=== PATIENT | male | born 1935 | race Caucasian/White ===

== ENCOUNTER 2017-02-06 10:38 | Outpatient (CLI) | payer MEDICARE ==
--- NOTE | 2017-02-06 13:42 | CT ---
CT CHEST WITHOUT CONTRAST HIGH RESOLUTION: Date: 02/06/17 HISTORY: Aspiration, cough. COMPARISON: None. FINDINGS: There is an apical basilar gradient of increased peripheral interstitial markings in the lung bases. There is mild associated traction bronchiectasis. No honeycombing. Mild thickening of the peripheral pleural of the bilateral major fissure. No suspicious pulmonary nodule is appreciated. There is intrahepatic biliary gas. No adenopathy. Moderate coronary artery calcifications. Cholecystectomy clips are present. No displaced rib fracture. IMPRESSION: 1. Mild increased subpleural reticulation of the apicobasilar gradient without honeycombing suggests a nonspecific interstitial pneumonitis. 2. No suspicious pulmonary nodule. 3. Moderate coronary artery calcifications. 4. Large volume intrahepatic biliary gas, likely from prior sphincterotomy. POS: DERREK
--- NOTE | 2017-02-08 09:32 | PFT ---
PATIENT HISTORY: HEIGHT: 66 IN WEIGHT: 150 LBS SMOKER: NEVER HOW LONG: PACKS PER DAY PRODUCTIVE COUGH: NO LUNG DISEASE: PHYSICIAN INTERPRETATION FINAL REPORT: FEV1 is normal at 2.23 liters, FVC is normal. Mid flows are normal. Maximum voluntary ventilation is moderately decreased total lung capacity is mildly reduced. Patient had coughing during the forced vital capacity maneuver. Air trapping was noted. Diffusion was reduced is corrected for lung volumes. There is variable effort on inspiration.nothing suggestive of extrathoracic airway obstruction. IMPRESSION: Nothing suggestive of extrathoracic airway obstruction. Hose Inspector: SARAY Concert Pianist: SARAY TELLEZ
== END 2017-02-06 10:39 | disposition home or self-care (01) ==
LOC: CT 10:38
PROVIDERS: ATTEND Internal Medicine Critical Care Medicine
DX: J69.0 Pneumonitis due to inhalation of food and vomit (principal); R05 Cough; I25.84 Coronary atherosclerosis due to calcified coronary lesion; K83.8 Other specified diseases of biliary tract
CPT/HCPCS: 71250; 94060; 94727; 94729

== ENCOUNTER 2017-06-30 09:56 | Outpatient (CLI) | payer MEDICARE ==
--- NOTE | 2017-06-30 12:29 | CT ---
CT CHEST WITHOUT CONTRAST: Date: 06/30/17 INDICATION: Concern for aspiration with chronic cough for 1 year. FINDINGS: There is a small left pleural effusion which is slightly larger than on a high resolution CT dated . The areas of peripheral interstitial thickening is largely stable, likely related to fibrosis . No confluent air space opacity is noted. No suspicious pulmonary nodule is identified. There are sc attered vascular calcification. The gallbladder is surgically absent. There is a 3.0 mm nonobstructin g calculus involving the superior pole of the right kidney. There is scattered degenerative and osteo arthritic change. There is diffuse osteopenia. IMPRESSION: 1. No confluent air space opacity to suggest the presence of pneumonia or definite aspiration pneumo nitis. 2. There is a small left pleural effusion with left basilar atelectasis, which is slightly more pron ounced than on a high resolution CT dated 02/06/17. 3. Interstitial fibrotic disease is similar appearing. 4. Cholecystectomy and pneumobilia is similar. POS: DERREK
== END 2017-06-30 09:57 | disposition home or self-care (01) ==
LOC: CT 09:56
PROVIDERS: ATTEND Internal Medicine Critical Care Medicine
DX: J69.0 Pneumonitis due to inhalation of food and vomit (principal); J90 Pleural effusion, not elsewhere classified; J98.11 Atelectasis; J84.10 Pulmonary fibrosis, unspecified; K83.8 Other specified diseases of biliary tract
CPT/HCPCS: 71250

== ENCOUNTER 2017-10-16 09:37 | Outpatient (CLI) | payer MEDICARE ==
--- NOTE | 2017-10-16 10:39 | RAD ---
PA AND LATERAL CHEST X-RAY: 10/16/2017 HISTORY: Dyspnea. COMPARISON: Study from 04/08/[address] exam thorax on 02/06/2017. FINDINGS: The cardiac silhouette and pulmonary vasculature are within normal limits. There are increased inter stitial opacities at each lung base, which were also seen on the high resolution CT exam, likely rela sp to chronic interstitial lung changes. No new focal area of consolidation or pleural fluid is see n. Degenerative changes are noted in the spine with calcification of the anterior longitudinal ligam ent. IMPRESSION: 1. No acute cardiopulmonary process. 2. Chronic interstitial lung changes, predominantly at each lung base and at the peripheral aspects of the mid lung zones. POS: DERREK
== END 2017-10-16 09:38 | disposition home or self-care (01) ==
LOC: RAD 09:37
PROVIDERS: ATTEND Internal Medicine Critical Care Medicine
DX: R06.00 Dyspnea, unspecified (principal)
CPT/HCPCS: 71046

== ENCOUNTER 2017-10-23 09:45 | Outpatient (CLI) | payer MEDICARE | END 2017-10-23 09:46 | disposition home or self-care (01) | PROVIDERS: ATTEND Internal Medicine Critical Care Medicine | DX: I69.891 Dysphagia following other cerebrovascular disease (principal); R13.12 Dysphagia, oropharyngeal phase; J69.0 Pneumonitis due to inhalation of food and vomit; K21.9 Gastro-esophageal reflux disease without esophagitis; J38.00 Paralysis of vocal cords and larynx, unspecified | CPT/HCPCS: 74230; G8996-GN-CJ; G8997-GN-CI; G8998-GN-CJ ==

== ENCOUNTER 2017-12-29 09:12 | Outpatient (CLI) | payer MEDICARE ==
--- NOTE | 2017-12-29 11:06 | CT ---
CHEST CT WITHOUT CONTRAST: Comparison: 02-06-17 History: Follow up chronic cough and pulmonary fibrosis. Technique: Multiple contiguous axial images were obtained in a CT of the chest without contrast per h igh resolution chest CT protocol. Thin slices were taken at thick intervals. Prone and supine imaging were performed. FINDINGS: There are increased interstitial lung markings peripherally. These are seen in both the upper lobes a nd lower lobes but are more prominent in the bilateral lower lobes. These findings are stable compare d to the prior examination. No significant honeycombing or bronchiectasis are present. No pleural eff usion or pneumothorax are seen. There is a 1.4 cm nodular opacity in the posterior aspect of the left lung which may represent ground atelectasis as it was not seen on the prior examination. Pulmonary n odule is also a possibility. The heart is normal in size. Calcifications are seen in the coronary arteries. No hilar or mediastina l lymphadenopathy are appreciated on this limited noncontrast examination. There is stable air within the biliary tree. Cholecystectomy clips are seen. The other visualized sub diaphragmatic structures are unremarkable. IMPRESSION: Stable peripheral interstitial lung disease does not have a UIT pattern and is most likely consistent with a nonspecific interstitial pneumonitis. POS: [facility]
== END 2017-12-29 09:13 | disposition home or self-care (01) ==
LOC: CT 09:12
PROVIDERS: ATTEND Internal Medicine Critical Care Medicine
DX: J84.10 Pulmonary fibrosis, unspecified (principal); J84.9 Interstitial pulmonary disease, unspecified
CPT/HCPCS: 71250

== ENCOUNTER 2018-07-15 08:22 | Outpatient (CLI) | payer MEDICARE ==
--- NOTE | 2018-07-15 11:19 | RAD ---
CHEST PA AND LATERAL VIEWS: HISTORY: Dyspnea. COMPARISON: 04/20/2018 FINDINGS: The heart size is normal. The aorta is tortuous. Chronic changes are again seen. No focal areas of consolidation, pneumothoraces, or pleural effusions are identified. IMPRESSION: No radiographic evidence of acute cardiopulmonary process. POS: OFF
== END 2018-07-15 08:23 | disposition home or self-care (01) ==
LOC: RAD 08:22
PROVIDERS: ATTEND Internal Medicine Critical Care Medicine
DX: R06.00 Dyspnea, unspecified (principal)
CPT/HCPCS: 71046

== ENCOUNTER 2018-08-22 21:51 | Inpatient (IN) | payer MEDICARE ==
[~2018-08-22 21:51] MED LIST: ISOVUE-370 76%-LOCM 1 ML ONE
[2018-08-22] MEDS ORDERED: diphenhydrAMINE 50 MG/ML VIAL ONE (22:11)
[2018-08-22] MEDS ORDERED: methylPREDNISolone Sod Succ/PF 125 MG/2 ML VIAL ONE (22:11)
[2018-08-22] MEDS ORDERED: Famotidine/PF 20 mg/2ml Vial ONE (22:11)
[2018-08-22 22:20] LABS: #Eosinphils 0.1 thou/uL (0.0-0.7); #Lymphocytes 0.8 thou/uL (1.20-3.40); #Monocytes 0.4 thou/uL (0.11-0.59); #Neutrophils 3.9 thou/uL (1.40-6.50); %Basophils 0.4 % (0.0-1.0); %Eosinophils 1.5 % (0.0-10.0); %Lymphocytes 16.2 % (21.0-51.0); %Neutrophils 74.9 % (42.0-75.0); Hemoglobin 12.4 g/dL (14.0-18.0); Mean Corpuscular HGB CONC 33.9 g/dL (32.0-36.0); Mean Corpuscular Hemoglobin 32.6 pg (27.0-31.0); Mean Corpuscular Volume 96.4 fL (78.0-98.0); Mean Platelet Volume 5.5 fL (7.4-10.4); Platelet Count 131 thou/uL (130-400); RBC Distribution Width 13.4 % (11.5-14.5); Red Blood Cell (RBC) Count 3.79 mill/uL (4.70-6.10); White Blood Cell (WBC) Count 5.2 thou/uL (4.8-10.8)
[2018-08-22 22:26] LABS: PTT 29.2 SEC (22.9-36.1); Prothrombin Time 13.4 SEC (12.0-14.7)
[2018-08-22 22:34] LABS: ALT (SGPT) 27 U/L (8-55); AST (SGOT) 38 U/L (5-34); Albumin 4.3 g/dL (3.4-4.8); Alkaline Phosphatase 149 U/L (40-150); Anion Gap 10 mmol/L (10-20); BUN (Urea Nitrogen) 13 mg/dL (8.4-25.7); Bilirubin, Total 0.7 mg/dL (0.2-1.2); CK (CPK) 136 U/L (30-200); Calc. Creatinine Clearance 0 mL/min (70-130); Calcium 9.3 mg/dL (7.8-10.44); Carbon Dioxide 28 mmol/L (23-31); Chloride 96 mmol/L (98-107); Estimated GFR-MDRD 66; Globulin 2.9 g/dL (2.4-3.5); Glucose 97 mg/dL (83-110); Potassium 4.3 mmol/L (3.5-5.1); Protein, Total 7.2 g/dL (5.8-8.1); Sodium 130 mmol/L (136-145)
[2018-08-22 22:39] LABS: Acetaminophen Less than 6.0 mcg/mL (10.0-30.0); Alcohol Less than 10 mg/dL (Less than 10); Salicylate Less than 8.0 mg/dL (15.0-30.0)
[2018-08-22] MEDS ORDERED: Labetalol HCl 100 MG/20 ML VIAL ONE (22:39)
[2018-08-22] MEDS ORDERED: Metoprolol Tartrate 5 MG/5 ML VIAL ONE ×2 (22:40→22:57)
[2018-08-22] MEDS ORDERED: Morphine 2 MG/ML SYRINGE ONE ×2 (22:44→23:12)
--- NOTE | 2018-08-22 23:06 | CT ---
EXAM: CT brain without contrast HISTORY: Left facial drooping; altered mental status and slurred speech COMPARISON: None TECHNIQUE: Multiple contiguous axial images were obtained and a CT of the brain without contrast. FINDINGS: There are scattered hypodensities in the subcortical and periventricular white matter consi stent with small vessel ischemic disease. There is no evidence of hydrocephalus, intracranial hemorrhage, or extra-axial fluid collection. The calvarium and overlying soft tissues are unremarkable. The visualized paranasal sinuses and masto id air cells are well aerated. IMPRESSION: No evidence of acute intracranial abnormality. Dr. Yi notified of findings at 11:04 PM on 08/22/2018.
--- NOTE | 2018-08-22 23:19 | CT ---
Exam: CTA neck with contrast CTA head with contrast HISTORY: Left facial drooping; altered mental status and slurred speech COMPARISON: None TECHNIQUE: 1. Multiple contiguous axial images were obtained and a CTA of the neck with contrast. 3-D sagittal a nd coronal MIP reformats were performed. 2. Multiple contiguous axial images were obtained and a CTA of the head with contrast. 3-D sagittal a nd coronal MIP reformats were performed. FINDINGS: CTA NECK: Aortic arch: Normal origin of the carotid arteries from the arch. No significant atherosclerotic dise ase of the subclavian arteries. Right common carotid artery: No significant atherosclerotic disease or narrowing Left common carotid artery: No significant atherosclerotic disease or narrowing Right internal carotid artery: No significant atherosclerotic disease or narrowing per NASCET criteri a Right external carotid artery: No significant atherosclerotic disease or narrowing Left internal carotid artery: No significant atherosclerotic disease or narrowing per NASCET criteri a Left external carotid artery: No significant atherosclerotic disease or narrowing Right cervical vertebral artery: No significant atherosclerotic disease or narrowing Left cervical vertebral artery: No significant atherosclerotic disease or narrowing No cervical adenopathy. The lung apices are unremarkable. The osseous structures are unremarkable. CTA HEAD: Right intracranial internal carotid artery: Patent without narrowing or occlusion Right anterior cerebral artery: Patent without narrowing or occlusion Right middle cerebral artery: Patent without narrowing or occlusion Left intracranial internal carotid artery: Patent without narrowing or occlusion Left anterior cerebral artery: Patent without narrowing or occlusion Left middle cerebral artery: Patent without narrowing or occlusion No aneurysmal dilatation is seen in the anterior circulation. Right vertebral artery: Patent without narrowing or occlusion Left vertebral artery: Patent without narrowing or occlusion Basilar artery: Patent without narrowing or occlusion The posterior cerebral arteries and cerebellar arteries are patent without narrowing or occlusion. No aneurysmal dilatation is seen in the posterior circulation. IMPRESSION: 1. No significant CTA abnormality of the neck 2. No significant CTA abnormality of the head
[2018-08-22 23:26] LABS: Bilirubin Negative (Negative); Blood, Urine Negative (Negative); Clarity CLEAR (Clear); Glucose, Urine (Dipstick) Negative (Negative); Leukocyte Negative (Negative); Nitrite Negative (Negative); Protein, Urine (Dipstick) Negative (Neg-Trace); Urobilinogen 0.2 mg/dL (0.2-1.0)
[2018-08-22] MEDS ORDERED: niCARdipine 20MG In NaCl 20 MG/200 ML BAG ONE (23:29)
[2018-08-22 23:38] LABS: Amphetamine Not Detected (NotDetected); Barbiturates Screen Not Detected (NotDetected); Benzodiazepine Screen Detected (NotDetected); Cocaine Metabolite Screen Not Detected (NotDetected); Medtox Control Line Valid? VALID (VALID); Medtox Reader # READER 4; Methadone Not Detected (NotDetected); Methamphetamine Not Detected (NotDetected); Opiate Screen Not Detected (NotDetected); Oxycodone Screen Not Detected (NotDetected); Phencyclidine (PCP) Not Detected (NotDetected); THC/Cannabinoid Screen Not Detected (NotDetected); Tricyclic Screen Detected (NotDetected)
--- NOTE | 2018-08-22 23:38 | RAD ---
EXAM: 2 views of the left hip HISTORY: Left hip pain COMPARISON: None FINDINGS: 2 views of the left hip shows no evidence of acute fracture or dislocation. The patient has a left hip prosthesis without perihardware lucency or fracture. . No soft tissue swelling is present. IMPRESSION: No evidence of acute osseous abnormality.
--- NOTE | 2018-08-22 23:41 | RAD ---
Exam: Single view of the pelvis HISTORY: Pelvic and hip pain COMPARISON: None FINDINGS: A single view the pelvis shows no evidence of acute fracture or dislocation. The patient crenshaw s a left hip prosthesis without perihardware lucency or fracture. Mild degenerative changes seen in the right hip. Hardware projecting over the penis likely represents a penile prosthesis. IMPRESSION: No evidence of acute osseous abnormality.
--- NOTE | 2018-08-23 01:11 | PDOC.FPRHP ---
- History of Present Illness Chief Complaint: found down, weakness History of Present Illness: 82 yo M with PMH of HTN, HLD presents after being found down at home. reports he had been outside all morning, while she went to the grocery store. He helped her bring the groceries in, then unknown to her he went and sat in his chair. She went looking for him and found him "sleeping" in his chair around 6 -6:15 PM, and was unable to arouse him fully by shaking him. He was able to answer yes or no questions but when she opened his eyes, he stated he couldn't see. EMS took him to [employer] where his NIH was 32, he was not breathing well, and he was life-flighted here to [facility]. Family reports he had multiple apneic episodes in [place] that responded to stimulation. He improved during the flight, started waking up. NIH on arrival here was 7 for some global confusion and slurred speech. Blood pressure was found to be elevated 220s/110s. He was given 3 doses of metoprolol. His BP did not improve, so he was started on a cardene drip. Patient reports he still feels somewhat confused, feels weak all over, feels SOB and has some trouble talking. Family reports his speech is at baseline. Reports headache, muscle cramps in left leg, SOB, and general weakness. Denies fever, chest pain, palpitations, wheezing, abdominal pain. - Allergies/Adverse Reactions Allergies Allergy/AdvReac Type Severity Reaction Status Date / Time iodine Allergy Severe Verified 06/11/16 10:58 Penicillins Allergy Intermediate Rash Verified 06/11/16 10:58 - Home Medications Medication Instructions Recorded Confirmed Type Sennosides/Docusate Sodium 1 tab PO ASDIR 04/10/13 06/12/16 History [Senokot S] Levothyroxine Sodium 112 mcg PO DAILY 06/11/16 06/12/16 History Lorazepam [Ativan] 1 mg PO TID PRN 06/11/16 06/12/16 History Losartan Potassium 50 mg PO HS 06/11/16 06/12/16 History Nortriptyline HCl 50 mg PO HS 06/11/16 06/12/16 History Pantoprazole [Protonix] 40 mg PO DAILY 06/11/16 06/12/16 History QUEtiapine Fumarate [SEROquel] 25 mg PO HS 06/11/16 06/12/16 History Acetaminophen With Codeine 1 tablet PO Q6HR PRN 06/12/16 06/12/16 History [Tylenol with Codeine #3] - History PMHx: HTN (no longer on medication, taken off by PCP), HLD, chronic back pain, anxiety, depression PSHx: L elbow and hsoulder repair, L hip repair, penile implant, appendectomy, cholecystectomy, chronic pancreatitis FHx: sister: colon cancer Social: No t/a/d - Review of Systems General: reports: other (headache). denies: fever/chills Eyes: reports: vision changes (blurring). denies: eye pain ENT: denies: nasal congestion, rhinorrhea Respiratory: reports: shortness of breath. denies: cough, congestion Cardiovascular: denies: chest pain, palpitation Gastrointestinal: reports: nausea, diarrhea, constipation. denies: vomiting, abdominal pain, GI bleeding Genitourinary: denies: dysuria, other (hematuria) Skin: reports: rashes (hematomas over both arms from blood draws) Musculoskeletal: reports: pain, tenderness (cramping left leg) Neurological: reports: weakness (generalized). denies: numbness Psychological: reports: anxiety, depression - Vital signs BP: 221/87 HR: 86 RR: 16 Tmax: 98.6 Pox: 100% on RA Wt: 78.4 kg - Physical Exam Constitutional: NAD, awake, alert and oriented HEENT: normocephalic and atraumatic, PERRLA, EOMI, conjunctiva clear, no scleral icterus, oropharynx clear, other (mild decreased hearing, dry MM) -HEENT: MM dry Neck: supple, no LAD Heart: RRR, normal S1/S2, no murmurs/rubs/gallops, pulses present, other (1+ BLE pitting edema) Lungs: no wheezing, other (inspiratory and expiratory crackles bilat lower bases ) Abdomen: soft, non-tender, bowel sounds present, other (diastasis recti) Musculoskeletal: normal structure, normal tone, ROM grossly normal Neurological: CN II-XII intact, normal sensation, DTRs 2+, other (3/5 strength upper and 4/5 lower extremities bilat) Skin: good turgor, capillary refill <2 seconds, other (extensive hematomas over both forearms) Heme/Lymphatic: other (extensive hematomas over bilat forearms from blood draws) Psychiatric: normal mood and affect, intact recent and remote memory FMR H&P: Results - Labs Result Diagrams: 08/22/18 22:06 08/22/18 22:06 Lab results: WBC 5.2 thou/uL (4.8-10.8) 08/22/18 22:06 Hgb 12.4 g/dL (14.0-18.0) L 08/22/18 22:06 Hct 36.5 % (42.0-52.0) L 08/22/18 22:06 MCV 96.4 fL (78.0-98.0) 08/22/18 22:06 Plt Count 131 thou/uL (130-400) 08/22/18 22:06 Neutrophils % 74.9 % (42.0-75.0) 08/22/18 22:06 Sodium 130 mmol/L (136-145) L 08/22/18 22:06 Potassium 4.3 mmol/L (3.5-5.1) 08/22/18 22:06 Chloride 96 mmol/L (98-107) L 08/22/18 22:06 Carbon Dioxide 28 mmol/L (23-31) 08/22/18 22:06 BUN 13 mg/dL (8.4-25.7) 08/22/18 22:06 Creatinine 1.07 mg/dL (0.7-1.3) 08/22/18 22:06 Glucose 97 mg/dL (83-110) 08/22/18 22:06 Lactic Acid 0.9 mmol/L (0.5-2.2) 08/22/18 22:31 Calcium 9.3 mg/dL (7.8-10.44) 08/22/18 22:06 Total Bilirubin 0.7 mg/dL (0.2-1.2) 08/22/18 22:06 AST 38 U/L (5-34) H 08/22/18 22:06 ALT 27 U/L (8-55) 08/22/18 22:06 Alkaline Phosphatase 149 U/L (40-150) 08/22/18 22:06 Creatine Kinase 136 U/L (30-200) 08/22/18 22:06 Serum Total Protein 7.2 g/dL (5.8-8.1) 08/22/18 22:06 Albumin 4.3 g/dL (3.4-4.8) 08/22/18 22:06 Urine Ketones Negative mg/dL (Negative) 08/22/18 22:15 Urine Blood Negative (Negative) 08/22/18 22:15 Urine Nitrite Negative (Negative) 08/22/18 22:15 Ur Leukocyte Esterase Negative (Negative) 08/22/18 22:15 - EKG Interpretation EKG: NSR FMR H&P: A/P - Problem List (1) Hypertensive emergency Current Visit: Yes Status: Acute Code(s): I16.1 - HYPERTENSIVE EMERGENCY (2) HLD (hyperlipidemia) Current Visit: Yes Status: Chronic Code(s): E78.5 - HYPERLIPIDEMIA, UNSPECIFIED (3) Anxiety Current Visit: Yes Status: Chronic Code(s): F41.9 - ANXIETY DISORDER, UNSPECIFIED (4) Depression Current Visit: Yes Status: Chronic Code(s): F32.9 - MAJOR DEPRESSIVE DISORDER, SINGLE EPISODE, UNSPECIFIED (5) Chronic pancreatitis Current Visit: Yes Status: Chronic Code(s): K86.1 - OTHER CHRONIC PANCREATITIS - Plan Hypertensive Emergency -220s/110s on arrival, altered mental status -CT head neg, CT Angio neg -EKG NSR -Cardene drip 2.5 mg, Goal BP 185/110 - patient's symptoms improved, speech family states is at baseline -currently AOx3, generalized weakness (BUE 3/5, BLE 4/5). No focal deficits. -Admit to ICU Hx of iodine allergy -pt reports throat swelling prior with iodine -Pt received benadryl and solumedrol s/p iodine with CT angiogram -continue to monitor closely for s/s swelling Rhales -Bilat lower lobes crackles, rreports SOB -CXR pending -1+ pitting edema -family reports no history of heart problems -BNP pending -Concern for flash pulmonary edema vs CHF HTN -as above Anxiety, depression -On seroquel, nortriptyline, lorazepam, unknown doses Hypothyroidism -On levothyroxine, unknown dose -TSH pending Diet: HH DVT ppx: lovenox GI ppx: pantoprazole PCP: Dr. Adkins in [place] Code status: Full FMR H&P: Upper Level - Pertinent history 82 yr old male with hx of depression and HTN that is not been treated for the last year due to "normalization of his BP", presents to outside ER for AMS and unresponsiveness. Patient apparently had been helping his get groceries around 1800. He then sat on couch and within minutes he was noted to be unresponsive. He was taken to ER by EMS and eventually lifeflighted to [facility]. En route, he significantly improved per family. He was noted to have severe elevated BP in ouside ER to 200 systolic and persisted upon arrival here. Denies chest pain but reports SOB and leg pain. Family reports him to have significant improvement since initial symptoms. No slurred speech/ - Pertinent findings Gen: no acute distress, lying in bed comfortably. slow speech but reported at baseline heart: RRR, NO m/r/g Lungs: good air movement however crackles in BLL Abd: Soft nontender to palpation Ext: No edema in BLE EKG: NSR, no ST changes, no ventricular hypertrophy - Plan Date/Time: 08/23/18 0111 I, [Dia Garcia], have evaluated this patient and agree with findings/plan as outlined by sports internship resident. Pertinent changes/additions are listed here. hypertensive emergency -likely acute in nature with altered mentation -will place in ICU n cardene drip and monitor BP closely. -titrate as able for BP < 185/110 -CT and CTA head/neck wnl, consider brain MRI. -TSH normal -renal funciton ok for age Depression -suggest removal of either seroquel or nortriptyline as these dianelys have interactions related to DEHAIRER depression Addendum - Attending - Attending Attestation Date/Time: 08/23/18 0203 I personally evaluated the patient and discussed the management with Dr. Celso Huber /Radha. I agree with the History, Examination, Assessment and Plan documented above with any addition or exceptions noted below. Patient with history of longstanding HTN not requiring medication recently and depression here with altered mentation. Patient was seen normal at home and a few minutes later noted to be overall unresponsive. Upon arrival to OSH, apparently his NIH scale was >30. He was transferred here for further care. Improved en route. On arrival, found to be extremely hypertensive and started on Cardene drip. Per patient, he reports feeling "off" over the last few days but nothing particular bothering him. Exam shows an elderly male AXOx3, conversive, surrounded by family. He has diffuse weakness but overall no focal findings. CT and CTA negative for ICH or thrombus. Labs show mild bump in troponins but still in negative range. Labs otherwise fairly normal. Patient will be admitted to CCU for HTN Emergency. Continue to monitor BP and will titrate PO meds in the AM if able to wean off Cardene. Consider MRI due to his symptoms and labile HTN since reports his BP is overall normal daily. This does not appear to be severe chronic elevation in BP. Also consider heat stroke , though his labs do not necessarily agree with this and patient reports he was not outside for long. Patient does report being on Namenda over the last 1 month and that is only new medication. However, he is on Seroquel and Nortriptyline which can cause issues with mentation abd blood pressure with environmental heat exposure Further mgmt per clinical course.
[2018-08-23 01:31] LABS: Troponin I 0.022 ng/mL (< 0.028)
[2018-08-23] MEDS ORDERED: Bisacodyl 5 MG TAB PO PRN (01:32)
[2018-08-23] MEDS ORDERED: Senokot S 8.6-50 MG TAB PO PRN (01:32)
[2018-08-23] MEDS ORDERED: Acetaminophen 650 MG Suppository PR PRN (01:32)
[2018-08-23] MEDS ORDERED: Enoxaparin Sodium 40 MG/0.4 ML SYRINGE SC SCH (01:45)
[2018-08-23] MEDS ORDERED: niCARdipine HCl 25 MG in Sodium Chloride 0.9% 250 ML 240 ML IVPB SCH (01:45)
[2018-08-23] MEDS ORDERED: Morphine 2 MG/ML SYRINGE SLOW IVP SCH (02:00)
[2018-08-23 04:57] LABS: Anion Gap 11 mmol/L (10-20); BUN (Urea Nitrogen) 12 mg/dL (8.4-25.7); Calc. Creatinine Clearance 64 mL/min (70-130); Calcium 9.8 mg/dL (7.8-10.44); Carbon Dioxide 24 mmol/L (23-31); Chloride 99 mmol/L (98-107); Estimated GFR-MDRD 84; Glucose 167 mg/dL (83-110); Potassium 4.3 mmol/L (3.5-5.1); Sodium 130 mmol/L (136-145)
[2018-08-23 05:07] LABS: Troponin I Less than 0.010 ng/mL (< 0.028)
[2018-08-23] MEDS: Acetaminophen 325 MG TAB PO PRN (05:40)
[2018-08-23 05:42] LABS: Band 4 % (5-11); Elliptocytes SLIGHT = 2-5 cells (100X) (0-1/hpf); Hemoglobin 13.1 g/dL (14.0-18.0); Lymphocytes 4 % (21-51); MDiff Complete? YES; Mean Corpuscular HGB CONC 33.7 g/dL (32.0-36.0); Mean Corpuscular Hemoglobin 32.6 pg (27.0-31.0); Mean Corpuscular Volume 96.8 fL (78.0-98.0); Mean Platelet Volume 6.5 fL (7.4-10.4); Monocytes 2 % (0-10); Neutrophil 90 % (42-75); Platelet Count 135 thou/uL (130-400); Platelet Morphology Comment Appears Decreased; RBC Distribution Width 13.4 % (11.5-14.5); Red Blood Cell (RBC) Count 4.02 mill/uL (4.70-6.10); White Blood Cell (WBC) Count 5.8 thou/uL (4.8-10.8)
--- NOTE | 2018-08-23 08:51 | RAD ---
CHEST 1 VIEW: HISTORY: Bilateral lower lobe crackles. COMPARISON: 09/22/2012. FINDINGS: Normal cardiac silhouette. The pulmonary vessels and hilum are normal. Costophrenic angles are cintia r. Diminished lung volumes. Bibasilar atelectasis is suspected. No pneumothorax or osseous abnorma lities. IMPRESSION: Bibasilar atelectasis. Diminished lung volumes. POS: OFF
[2018-08-23] MEDS ORDERED: Losartan 25 MG TAB PO SCH (09:00)
[2018-08-23] MEDS: Enoxaparin Sodium 40 MG/0.4 ML SYRINGE SC SCH (10:03)
[2018-08-23] MEDS: Levothyroxine Sodium 112 MCG TAB PO SCH (10:25)
[2018-08-23] MEDS: Pantoprazole 40 MG VIAL IVP SCH (10:25)
[2018-08-23] MEDS: Ketorolac Tromethamine 30 MG/ML VIAL IVP SCH ×3 (10:25→23:42)
[2018-08-23] MEDS: Sodium Chloride 0.9% (PF) 10 ML VIAL FS PRN (10:25)
[2018-08-23] MEDS: Sodium Chloride 0.9% 1,000 ML IV SCH ×2 (12:35→23:41)
[2018-08-23] MEDS ORDERED: Ondansetron PF 4 MG/2 ML Vial IVP PRN (12:45)
[2018-08-23] MEDS ORDERED: CCU Electrolyte Replacement 1 EACH IVPB ONE (12:45)
[2018-08-23] MEDS ORDERED: Midazolam HCl 2 mg/2 ml Vial ONE (12:45)
[2018-08-23] MEDS ORDERED: Ventilator Sedation Protocol 1 EACH FS SCH ×2 (12:45→13:00)
[2018-08-23] MEDS ORDERED: Propofol 1,000 MG/100 ML VIAL IV ONE (12:50)
[2018-08-23] MEDS ORDERED: CCU ELECTROLYTE REPLACEMENT PROTOCOL FS PRN (12:52)
[2018-08-23] MEDS ORDERED: Potassium Chloride 20 MEQ TAB PO PRN (12:52)
[2018-08-23] MEDS ORDERED: Potassium Phosphate 12 MMOL in Sodium Chloride 0.9% 250 ML 250 ML IV PRN (12:52)
[2018-08-23] MEDS ORDERED: Potassium Phosphate 15 MMOL in Sodium Chloride 0.9% 250 ML 250 ML IV PRN (12:52)
[2018-08-23] MEDS ORDERED: PHOS-NAK 1 PKT PACK PO PRN ×2 (12:52)
[2018-08-23] MEDS ORDERED: Magnesium 2 GM/50 ML 2 GM in Premix Bag 1 BAG IVPB PRN (12:52)
[2018-08-23] MEDS ORDERED: Magnesium Oxide 400 MG TAB PO PRN ×2 (12:52)
[2018-08-23] MEDS ORDERED: Potassium Phosphate 9 MMOL in Sodium Chloride 0.9% 100 ML IVPB PRN (12:52)
[2018-08-23] MEDS ORDERED: Potassium Chloride 40 MEQ in Premix Bag 1 BAG IVPB PRN (12:52)
[2018-08-23] MEDS ORDERED: Potassium Chloride 40 MEQ in Sodium Chloride 0.9% 250 ML 250 ML IVPB PRN (12:52)
[2018-08-23] MEDS ORDERED: Propofol BOLUS 1,000 MG/100 ML VIAL IV PRN (12:53)
[2018-08-23] MEDS ORDERED: DISCONTINUE PREVIOUS NARCOTIC PAIN MEDICATIONS AND BENZODIAZEPINES FS SCH (12:53)
[2018-08-23] MEDS ORDERED: fentaNYL Citrate/PF 2,000 MCG in Sodium Chloride 0.9% 60 ML IV SCH (12:53)
[2018-08-23] MEDS ORDERED: Morphine 2 MG/ML SYRINGE SLOW IVP PRN (12:53)
[2018-08-23] MEDS ORDERED: Fentanyl BOLUS 250 ML IVPB PRN (12:53)
[2018-08-23] MEDS ORDERED: Midazolam HCl 2 mg/2 ml Vial SLOW IVP SCH (13:00)
[2018-08-23] MEDS: Lorazepam 2 MG/ML VIAL SLOW IVP PRN ×3 (13:00→23:42)
[2018-08-23 13:15] LABS: #Lymphocytes 1.1 thou/uL (1.20-3.40); #Monocytes 0.2 thou/uL (0.11-0.59); #Neutrophils 5.3 thou/uL (1.40-6.50); %Basophils 0.1 % (0.0-1.0); %Eosinophils 0.3 % (0.0-10.0); %Lymphocytes 16.5 % (21.0-51.0); %Monocytes 2.2 % (0.0-10.0); %Neutrophils 80.9 % (42.0-75.0); Hemoglobin 13.2 g/dL (14.0-18.0); Mean Corpuscular Hemoglobin 33.4 pg (27.0-31.0); Mean Corpuscular Volume 95.4 fL (78.0-98.0); Mean Platelet Volume 6.2 fL (7.4-10.4); Platelet Count 205 thou/uL (130-400); RBC Distribution Width 13.5 % (11.5-14.5); Red Blood Cell (RBC) Count 3.94 mill/uL (4.70-6.10); White Blood Cell (WBC) Count 6.6 thou/uL (4.8-10.8)
[2018-08-23] MEDS ORDERED: Dexamethasone 4 MG in Sodium Chloride 0.9% 50 ML IVPB SCH (13:15)
[2018-08-23 13:33] LABS: Actual Bicarbonate (HCO3a) 19.2 mEq/L (22-28); Base Excess (BEa) -2.9 mEq/L (-2.0 to +3.0); CO2 Tension 26.2 mmHg (35.0-45.0); Calcium, Ionized 1.13 mmol/L (1.12-1.30); Carboxyhemoglobin (COHb) 0.7 gm% (0.0-3.0); Hemoglobin (Hb) 12.7 g/dL (14.0-18.0); O2 Tension (PaO2) 125.7 mmHg (> 60.0); Potassium - ABG Lab 4.07 mmol/L (3.70-5.30); pH, Arterial 7.48 (7.35-7.45)
[2018-08-23 13:35] LABS: Puncture Site RRA
[2018-08-23 13:40] LABS: Troponin I 0.019 ng/mL (< 0.028)
--- NOTE | 2018-08-23 13:56 | CON ---
DATE OF CONSULTATION: HISTORY OF PRESENT ILLNESS: Efren Wills is an 82-year-old gentleman, who is admitted last night with symptoms of mental status change. He is here in the ICU, and apparently overnight, he did well, in fact he was transferred to the stroke unit. The nurses tell me, prior to his transfer, his vital signs were stable, he was talking appropriately. He was scheduled to go for an MRI when he became acutely encephalopathic, complaining could not breathe, could not lie down. He was transferred back to the ICU, where he clearly was having difficulty breathing. He is having bouts where he was not moving any air, though he saturations were 100% and blood pressure was 180/90. He is not moving his right side very well. Emergency endoscopy was performed to assess his vocal cords, which was normal. I did not see any airway obstruction in his windpipe. Trachea looked normal. The bronchoscope was removed. He was still having marked difficulty breathing, became more agitated and confused. It was felt that he needed to be intubated. Therefore, 7.5 endotracheal tube was placed over the bronchoscope, intubated, tube was placed right above the cesar. He was given a total of 4 mg of Versed during the procedure and he was placed on Diprivan drip. He is now to go for an MRI of his brain. Additional information is that the patient was apparently unresponsive at home on the chair when they brought him here. PAST MEDICAL HISTORY: Otherwise, pertinent for previous history of hypertension. Previous surgery for osteophyte C2-C3 previous pulmonary function test done, done by Dr. Quintana, which shows no evidence of any upper airway obstruction with normal flows and vital capacity, and apparently, he is a nonsmoker. He has had chronic back pain, anxiety, and depression. PREVIOUS SURGERIES: Shoulder surgery, cervical surgery. SOCIAL HISTORY: No alcohol or tobacco. HOME MEDICATIONS: Apparently, included: 1. Seroquel 25. 2. Protonix 40. 3. Nortriptyline 50. 4. Losartan 50. 5. Ativan p.r.n. 6. Synthroid 1112 daily. ALLERGIES: PENICILLIN. REVIEW OF SYSTEMS: Otherwise unobtainable. PHYSICAL EXAMINATION: VITAL SIGNS: Post-intubation, his sats are 100%, blood pressure 152/80, pulse 80, and respiratory rate 18. CHEST: Decreased breath sounds. No wheezing. CARDIAC: Normal S1 and S2. No gallops. ABDOMEN: Soft. No masses. NEUROLOGIC: He is not able to move his right side very well, but he is moving his left side better. LABORATORY DATA: White count is 5.8, H and H 13 and 38, platelet count is normal. Sodium is 130. BNP is normal. Thyroid function normal. Drug screen was negative except for benzos and tricyclics, which he is taking. Chest x-ray did not show any new infiltrates. CT angio of head and neck is negative. Brain CT is initially negative. IMPRESSION: 1. Acute respiratory distress, rule out CVA. 2. Nonsmoker. 3. Previous cervical surgery. 4. Anxiety, depression. 5. Hypertension. Once he is sedated, he will go for an MRI to further assess his neurological status. Otherwise, continue home medications, supportive care. We will notify Dr. Quintana who has seen him in the past. 45 minutes of critical time exclusive of the intubation. Job ID: [id number]
[2018-08-23 14:07] LABS: ALT (SGPT) 26 U/L (8-55); AST (SGOT) 36 U/L (5-34); Albumin 4.2 g/dL (3.4-4.8); Alkaline Phosphatase 143 U/L (40-150); Anion Gap 20 mmol/L (10-20); BUN (Urea Nitrogen) 19 mg/dL (8.4-25.7); Bilirubin, Total 0.8 mg/dL (0.2-1.2); Calc. Creatinine Clearance 42 mL/min (70-130); Calcium 9.5 mg/dL (7.8-10.44); Carbon Dioxide 20 mmol/L (23-31); Chloride 95 mmol/L (98-107); Estimated GFR-MDRD 51; Globulin 3.6 g/dL (2.4-3.5); Glucose 174 mg/dL (83-110); Protein, Total 7.8 g/dL (5.8-8.1); Sodium 131 mmol/L (136-145)
[2018-08-23] MEDS: Dexamethasone 4 MG in Sodium Chloride 0.9% 50 ML IVPB SCH ×2 (19:34→23:41)
[2018-08-23] MEDS ORDERED: Famotidine 40 MG/5 ML Oral Suspension PER TUBE SCH (21:00)
[2018-08-23] MEDS: Propofol 1,000 MG/100 ML VIAL IV PRN (23:42)
[2018-08-24] MEDS: Propofol 1,000 MG/100 ML VIAL IV PRN ×3 (05:04→20:04)
[2018-08-24] MEDS: Ketorolac Tromethamine 30 MG/ML VIAL IVP SCH ×4 (05:05→23:14)
[2018-08-24] MEDS: Dexamethasone 4 MG in Sodium Chloride 0.9% 50 ML IVPB SCH ×3 (06:10→20:23)
[2018-08-24 06:42] LABS: Hemoglobin 12.2 g/dL (14.0-18.0); Mean Corpuscular HGB CONC 34.5 g/dL (32.0-36.0); Mean Corpuscular Hemoglobin 32.7 pg (27.0-31.0); Mean Corpuscular Volume 94.9 fL (78.0-98.0); Mean Platelet Volume 6.8 fL (7.4-10.4); Platelet Count 146 thou/uL (130-400); RBC Distribution Width 13.3 % (11.5-14.5); Red Blood Cell (RBC) Count 3.72 mill/uL (4.70-6.10)
[2018-08-24 07:09] LABS: ALT (SGPT) 26 U/L (8-55); AST (SGOT) 46 U/L (5-34); Albumin 3.5 g/dL (3.4-4.8); Alkaline Phosphatase 123 U/L (40-150); Anion Gap 12 mmol/L (10-20); BUN (Urea Nitrogen) 19 mg/dL (8.4-25.7); Bilirubin, Total 0.6 mg/dL (0.2-1.2); Calc. Creatinine Clearance 54 mL/min (70-130); Calcium 8.8 mg/dL (7.8-10.44); Carbon Dioxide 21 mmol/L (23-31); Chloride 103 mmol/L (98-107); Estimated GFR-MDRD 68; Globulin 3.4 g/dL (2.4-3.5); Glucose 158 mg/dL (83-110); Potassium 4.4 mmol/L (3.5-5.1); Protein, Total 6.9 g/dL (5.8-8.1); Sodium 132 mmol/L (136-145)
[2018-08-24] MEDS: Lorazepam 2 MG/ML VIAL SLOW IVP PRN ×4 (07:10→20:59)
[2018-08-24 07:13] LABS: Actual Bicarbonate (HCO3a) 21.7 mEq/L (22-28); Base Excess (BEa) 0.1 mEq/L (-2.0 to +3.0); CO2 Tension 26.7 mmHg (35.0-45.0); Calcium, Ionized 1.12 mmol/L (1.12-1.30); Carboxyhemoglobin (COHb) 0.4 gm% (0.0-3.0); Hemoglobin (Hb) 12.4 g/dL (14.0-18.0); O2 Tension (PaO2) 178.1 mmHg (> 60.0); Potassium - ABG Lab 3.36 mmol/L (3.70-5.30); pH, Arterial 7.53 (7.35-7.45)
--- NOTE | 2018-08-24 07:15 | PDOC.FM ---
- Objective Vital Signs & Weight: Vital Signs (12 hours) Temp Pulse Resp BP Pulse Ox 08/24/18 06:43 74 158/93 H 08/24/18 06:41 74 22 H 100 08/24/18 06:00 21 H 08/24/18 04:00 18 08/24/18 03:05 83 180/79 H 08/24/18 03:00 98.4 F 08/24/18 02:00 21 H 08/24/18 01:11 77 21 H 100 08/24/18 00:00 21 H 08/23/18 23:00 98.2 F 08/23/18 22:08 89 152/90 H 08/23/18 22:00 22 H 08/23/18 20:00 21 H 100 Weight Weight 72.745 kg Most Recent Monitor Data Heart Rate from ECG 72 NIBP 119/69 NIBP BP-Mean 85 Respiration from ECG 23 SpO2 100 I&O: 08/23/18 08/24/18 08/25/18 06:59 06:59 06:59 Intake Total 340 833 Output Total 1400 2180 Balance -1060 -1347 Result Diagrams: 08/24/18 06:19 08/24/18 06:19 Dx/Plan (1) Hypertensive emergency Code(s): I16.1 - HYPERTENSIVE EMERGENCY Status: Acute (2) Anxiety Code(s): F41.9 - ANXIETY DISORDER, UNSPECIFIED Status: Chronic (3) Chronic pancreatitis Code(s): K86.1 - OTHER CHRONIC PANCREATITIS Status: Chronic (4) Depression Code(s): F32.9 - MAJOR DEPRESSIVE DISORDER, SINGLE EPISODE, UNSPECIFIED Status : Chronic (5) HLD (hyperlipidemia) Code(s): E78.5 - HYPERLIPIDEMIA, UNSPECIFIED Status: Chronic (6) Stroke Code(s): I63.9 - CEREBRAL INFARCTION, UNSPECIFIED Status: Acute - Plan Plan: HPI: Overnight no acute events. Off of the cardene drip. Nods head yes/no to questions. Denies pain this AM. PHYSICAL EXAMINATION: General: inbutated HEENT: PERRLA Neck: Supple. Full ROM Heart/Cardiovascular System: RRR, Cap refill < 3 seconds, no rub, no murmur Lungs/Respiratory System: intubated, good air movement, no crackles Abdomen/Gastro-Intestinal System: no abdominal tenderness, normal bowel sounds, no masses, no organomegaly Extremeties: Warm extremities. No cyanosis or edema. Neuro: sedated Psychiatry: sedated Skin/ Integumentory: No lesions, rashes, or ulcers Musculoskeletal: restrained Assessment/Plan This is a 82 yo male admitted for CVA. Consults: Pulm, OT/PT, Neuro WORKING SECOND HAND (CVA) - Sedation: propofol - Initial NIHSS 32 at outside hospital, 7 upon arrival to [facility] - CT head, CTA head neg - MRI ordered - Neuro consulted appreciate recs Resp (hx of epiglottic dysfxn, possible aspiration, intubated) - had normal PFTs outpt per pulm not - clear bronch 6/2 per pulm - dexamethasone - taking spontaneous breaths, titrate down on sedation, may be candidate for extubation today CV (hx of iodine allergy w/ throat swelling, HTN emergency- resolved) - EF 50-55% 6/2 - off cardene drip - home losartan increased to 100mg, Labetalol PRN GI (hx of chronic pancreatitis) - /Renal (NISH) - cr .87-> 1.33 Infection () Endo( hyponatremia) - Monitor Lines/Tubes: intubated, CVC Code status: full PPx: pantoprazole Dispo: >2 nights Addendum - Attending - Attending Attestation Date/Time: 08/24/18 1941 I personally evaluated the patient and discussed the management with Dr. Huber I agree with the History, Examination, Assessment and Plan documented above with any addition or exceptions noted below. For MRI today before consideration extubation. Appreciate recommendations Critical Care.
[2018-08-24 07:20] LABS: ALV-art Gradient 73.725 (0-20); Puncture Site L.R.
--- NOTE | 2018-08-24 07:37 | RAD ---
AP view chest. History: Patient with history of lower lobe crackles and respiratory difficulties chest pain. AP view chest demonstrates EKG leads seen over the chest. There is a nasogastric tube has been placed distal tip is in good position overlying the left upper quadrant of the abdomen. Mild pulmonary vascular congestion seen. No evidence of effusion seen. IMPRESSION: placement of an NG tube in good position.
[2018-08-24] MEDS: Pantoprazole 40 MG VIAL IVP SCH (08:25)
[2018-08-24] MEDS: Levothyroxine Sodium 112 MCG TAB PO SCH (10:35)
[2018-08-24] MEDS: Losartan 25 MG TAB PO SCH (10:35)
[2018-08-24] MEDS: Enoxaparin Sodium 40 MG/0.4 ML SYRINGE SC SCH (10:36)
--- NOTE | 2018-08-24 10:47 | MRI ---
BRAIN MRI WITHOUT IV CONTRAST: HISTORY: Followup stroke alert, unresponsive, altered mental status, slurred speech, facial droop. FINDINGS: There is some minimal scattered atrophy and chronic white matter ischemic change. Very small old lef t cortical infarct. No evidence for acute infarct. No abnormal restricted diffusion. No evidence f or mass or midline shift. No acute hemorrhage. Expected flow voids are present. Very mild ethmoid sinus mucosal congestion. IMPRESSION: Atrophy and chronic white matter ischemic changes. Small old left cortical punctate infarct. No rikki dence for acute infarct, mass, hemorrhage, or other acute process. POS: C
[2018-08-24] MEDS: Sodium Chloride 0.9% 1,000 ML IV SCH ×2 (11:44→22:49)
--- NOTE | 2018-08-24 16:20 | CT ---
Exam: CTA neck with contrast CTA head with contrast HISTORY: Left facial drooping; altered mental status and slurred speech COMPARISON: None TECHNIQUE: 1. Multiple contiguous axial images were obtained and a CTA of the neck with contrast. 3-D sagittal a nd coronal MIP reformats were performed. 2. Multiple contiguous axial images were obtained and a CTA of the head with contrast. 3-D sagittal a nd coronal MIP reformats were performed. FINDINGS: CTA NECK: Aortic arch: Normal origin of the carotid arteries from the arch. No significant atherosclerotic dise ase of the subclavian arteries. Right common carotid artery: No significant atherosclerotic disease or narrowing Left common carotid artery: No significant atherosclerotic disease or narrowing Right internal carotid artery: No significant atherosclerotic disease or narrowing per NASCET criteri a Right external carotid artery: No significant atherosclerotic disease or narrowing Left internal carotid artery: No significant atherosclerotic disease or narrowing per NASCET criteri a Left external carotid artery: No significant atherosclerotic disease or narrowing Right cervical vertebral artery: No significant atherosclerotic disease or narrowing Left cervical vertebral artery: No significant atherosclerotic disease or narrowing No cervical adenopathy. The lung apices are unremarkable. The osseous structures are unremarkable. CTA HEAD: Right intracranial internal carotid artery: Patent without narrowing or occlusion Right anterior cerebral artery: Patent without narrowing or occlusion Right middle cerebral artery: Patent without narrowing or occlusion Left intracranial internal carotid artery: Patent without narrowing or occlusion Left anterior cerebral artery: Patent without narrowing or occlusion Left middle cerebral artery: Patent without narrowing or occlusion No aneurysmal dilatation is seen in the anterior circulation. Right vertebral artery: Patent without narrowing or occlusion Left vertebral artery: Patent without narrowing or occlusion Basilar artery: Patent without narrowing or occlusion The posterior cerebral arteries and cerebellar arteries are patent without narrowing or occlusion. No aneurysmal dilatation is seen in the posterior circulation. IMPRESSION: 1. No significant CTA abnormality of the neck 2. No significant CTA abnormality of the head Transcribed Date/Time: 08/24/2018 4:19 PM
--- NOTE | 2018-08-24 16:36 | PRG ---
DATE OF SERVICE: 08/24/2018 SUBJECTIVE: Mr. Wills is in no distress. Events overnight have been reviewed. OBJECTIVE: VITAL SIGNS: Heart rate is 88, blood pressure 130/93, and respiratory rate is 20. LUNGS: Clear anteriorly. HEART: Regular rhythm. ABDOMEN: Soft. EXTREMITIES: Without edema. LABORATORY DATA: White count is 8.9, hemoglobin 12.2, and platelets 146. Sodium 132, potassium 4.4, chloride 103, bicarb 21, BUN 19, and creatinine 1.04. A pH 7.53, pCO2 of 26, and pO2 of 178. IMPRESSION: Respiratory failure. The triggering event is unclear to me at this time. Imaging has not shown a conclusive evidence of a thrombotic cerebrovascular accident. Hopefully, if he is neurologically intact in the morning and passes a spontaneous breathing trial, we can consider extubation. Other problems include recurrent aspiration with findings not suggestive of usual interstitial pneumonitis on CT in my opinion. We will be happy to follow the other physicians following him. CRITICAL CARE TIME: 30 minutes. Job ID: [id number]
[2018-08-24] MEDS ORDERED: Famotidine 40 MG/5 ML Oral Suspension PER TUBE SCH (21:00)
[2018-08-25] MEDS: Dexamethasone 4 MG in Sodium Chloride 0.9% 50 ML IVPB SCH (01:43)
[2018-08-25] MEDS: Propofol 1,000 MG/100 ML VIAL IV PRN (04:06)
[2018-08-25] MEDS: Ketorolac Tromethamine 30 MG/ML VIAL IVP SCH ×4 (05:20→23:12)
--- NOTE | 2018-08-25 06:31 | PDOC.FM ---
- Subjective Subjective: Overnight patient's blood pressures were fairly labile, 110s systolic to 170s systolic. Mild low urine output 0.41ml/kg/hr. Otherwise no acute events overnight. Palliative care met with family when here in the afternoon who confirmed full code status for now. - Objective Vital Signs & Weight: Vital Signs (12 hours) Temp Pulse Resp BP Pulse Ox 08/25/18 06:15 85 170/92 H 100 08/25/18 06:13 86 22 H 100 08/25/18 06:00 21 H 08/25/18 04:00 97.7 F 22 H 08/25/18 03:15 93 08/25/18 02:00 20 08/25/18 00:00 97.8 F 19 08/24/18 23:57 93 150/86 H 08/24/18 22:00 22 H 08/24/18 20:00 23 H 08/24/18 19:25 100 08/24/18 19:00 97.5 F L 08/24/18 18:46 80 100 08/24/18 18:45 100 Weight Admit Weight 72.575 kg Weight 71.8 kg Most Recent Monitor Data Heart Rate from ECG 89 NIBP 170/92 NIBP BP-Mean 118 Respiration from ECG 22 SpO2 100 I&O: 08/23/18 08/24/18 08/25/18 06:59 06:59 06:59 Intake Total 783 674 0698 Output Total 1400 2180 760 Balance -1060 -1347 2080 Result Diagrams: 08/25/18 07:41 08/25/18 07:41 Phys Exam - Physical Examination sedated HEENT: PERRLA Respiratory: clear to auscultation bilateral Cardiovascular: RRR, no significant murmur Gastrointestinal: soft, non-tender, no distention, positive bowel sounds Musculoskeletal: no edema, pulses present sedated Skin: no rash, cap refill <2 seconds Dx/Plan (1) Hypertensive emergency Code(s): I16.1 - HYPERTENSIVE EMERGENCY Status: Acute (2) Anxiety Code(s): F41.9 - ANXIETY DISORDER, UNSPECIFIED Status: Chronic (3) Chronic pancreatitis Code(s): K86.1 - OTHER CHRONIC PANCREATITIS Status: Chronic (4) Depression Code(s): F32.9 - MAJOR DEPRESSIVE DISORDER, SINGLE EPISODE, UNSPECIFIED Status : Chronic (5) HLD (hyperlipidemia) Code(s): E78.5 - HYPERLIPIDEMIA, UNSPECIFIED Status: Chronic (6) Stroke Code(s): I63.9 - CEREBRAL INFARCTION, UNSPECIFIED Status: Acute - Plan Plan: Assessment/Plan This is a 82 yo male admitted for CVA. Consults: Pulm, OT/PT, Neuro, Palliative care QUALITY CONTROL CHECKER (TIA vs Heat stroke) - Sedation: propofol - Initial NIHSS 32 at outside hospital, [address] [facility] - CT head, CTA head neg - MRI shows chronic ischemic changes but not acute CVA - Neuro consulted appreciate recs Resp (hx of epiglottic dysfxn, possible aspiration, intubated) - had normal PFTs outpt per pulm note - clear bronch 6/2 per pulm - dexamethasone - spontaneous breathing trial this AM - vent: VC-SIMV, TV 500, FiO2 40%, PEEP 5 - causes for resp distress event is unclear differential includes epiglottic dysfxn causing aspiration, TIA, panic attack CV (hx of iodine allergy w/ throat swelling, HTN emergency- resolved) - EF 50-55% 6/2 - off cardene drip - home losartan increased to 100mg, Labetalol PRN GI (hx of chronic pancreatitis) /Renal (NISH) - cr .87-> 1.33 - AM BMP pending, will follow Infection () - afebrile, clear on auscultation Endo( hyponatremia) - Monitor Lines/Tubes: intubated, CVC Code status: full PPx: pantoprazole Dispo: >2 nights Addendum - Attending - Attending Attestation Date/Time: 08/25/18 8000 I personally evaluated the patient and discussed the management with Dr. Huber I agree with the History, Examination, Assessment and Plan documented above with any addition or exceptions noted below. Brain MRI with no acute changes patient with spontaneous breaths for extubation trial today. Appreciate recommendation of Critical Care/Pulmonary.
[2018-08-25 07:58] LABS: Hemoglobin 12.7 g/dL (14.0-18.0); Mean Corpuscular HGB CONC 34.8 g/dL (32.0-36.0); Mean Platelet Volume 7.1 fL (7.4-10.4); Platelet Count 130 thou/uL (130-400); RBC Distribution Width 13.7 % (11.5-14.5); Red Blood Cell (RBC) Count 3.84 mill/uL (4.70-6.10); White Blood Cell (WBC) Count 11.1 thou/uL (4.8-10.8)
[2018-08-25 08:17] LABS: ALT (SGPT) 24 U/L (8-55); AST (SGOT) 34 U/L (5-34); Albumin 3.5 g/dL (3.4-4.8); Alkaline Phosphatase 116 U/L (40-150); Anion Gap 15 mmol/L (10-20); BUN (Urea Nitrogen) 21 mg/dL (8.4-25.7); Bilirubin, Total 0.6 mg/dL (0.2-1.2); Calc. Creatinine Clearance 67 mL/min (70-130); Calcium 8.7 mg/dL (7.8-10.44); Carbon Dioxide 16 mmol/L (23-31); Chloride 107 mmol/L (98-107); Estimated GFR-MDRD 88; Globulin 2.9 g/dL (2.4-3.5); Glucose 129 mg/dL (83-110); Potassium 3.6 mmol/L (3.5-5.1); Protein, Total 6.4 g/dL (5.8-8.1); Sodium 134 mmol/L (136-145)
[2018-08-25] MEDS: Enoxaparin Sodium 40 MG/0.4 ML SYRINGE SC SCH (08:18)
[2018-08-25] MEDS: Sodium Chloride 0.9% (PF) 10 ML VIAL FS PRN (08:18)
[2018-08-25] MEDS: Pantoprazole 40 MG VIAL IVP SCH (08:18)
[2018-08-25] MEDS: Dexamethasone 4 mg/ml Vial SLOW IVP SCH ×4 (08:18→23:13)
[2018-08-25] MEDS: Levothyroxine Sodium 112 MCG TAB PO SCH (08:18)
[2018-08-25] MEDS: Sodium Chloride 0.9% 1,000 ML IV SCH ×2 (08:25→16:21)
[2018-08-25] MEDS: Losartan 25 MG TAB PO SCH (08:40)
[2018-08-25] MEDS: Labetalol HCl 100 MG/20 ML VIAL SLOW IVP PRN ×2 (11:03→14:12)
--- NOTE | 2018-08-25 15:07 | PDOC.EVN ---
Event Note - Event Note Event Note: Patient extubated this afternoon Called to bedside for chest pain described as pressure, patient ranks pain as moderate Patient states pain is in the center of his chest but also in the shoulder and the neck No respiratory distress Patient states pain has been going on since before he was intubated Pain is worse with cough, tender to palpation in the center of the chest Suspect pleuritic source, costochondirits, will check ekg, trop
[2018-08-25 16:09] LABS: Troponin I 0.034 ng/mL (< 0.028)
[2018-08-25] MEDS ORDERED: niCARdipine HCl 25 MG in Sodium Chloride 0.9% 250 ML 240 ML IVPB SCH (16:45)
--- NOTE | 2018-08-25 17:30 | PDOC.EVN ---
Event Note - Event Note Event Note: Called to bedside for apneic spells lasting 10-15seconds, witnessed At bedside RT applying jaw thrust. Patient was not responding to stimulation during apnea spells Spells lasted 10-15 sec then he woke up coughing spontaneously Never had sats below 99 Put patient on bipap with rate control, patient tolerating well but then still had similar apneic spells and recovery Called and informed her of the situation. She states she wants him to be full code at this time
--- NOTE | 2018-08-25 17:44 | PRG ---
DATE OF SERVICE: 08/25/2018 SUBJECTIVE: Efren Wills did well overnight. He was placed on Precedex. This morning, his sedation was decreased. He is awake and followed commands. Precedex was then gradually weaned down. OBJECTIVE: VITAL SIGNS: He is still hypertensive with a blood pressure of 195/86, heart rate 78, respiratory rate was in the 20s. EXTREMITIES: He is moving all extremities. GENERAL: His minute volume is about 8 L a minute. LUNGS: Clear. HEART: Regular rhythm. S1 and S2 are normal. ABDOMEN: Soft, nontender. EXTREMITIES: Without asymmetry. NEUROLOGIC: He moves all extremities. He would do this to command. He passed a leak test. LABORATORY DATA: White count 11.1, hemoglobin 12.7, platelets 130,000. Sodium 134, potassium 3.6, chloride 107, bicarb 16, BUN 21, creatinine 0.83. PH of 7.53, pCO2 of 26, pO2 of 178. IMPRESSION: Status post intubation for fluctuating mental status with respiratory depression. The etiology of this remains unclear. I felt he is a candidate for extubation. This has been done successfully and appears to be stable at this point in time. CRITICAL CARE TIME: 30 minutes. Job ID: [id number]
--- NOTE | 2018-08-25 21:48 | PDOC.EVN ---
Event Note - Event Note Event Note: Called to bedside after patients nurse witnessed several apneic episodes lasting 30-60s, despite being on Bipap. He was not responding to questioning or sternal rub during the episodes. At the time of initial evaluation, patient did have labored breathing and his vital signs were normal. Primary care team spoke with patients and two daughters and made them aware of the situation. Patient was equivocal regarding code status moving forward, telling his to "let me go" but also telling staff that he wanted to be intubated again if need be. After a long discussion with patietn and family, it was determined that the patient still wishes to be a full code. His blood pressure has continued to be high, with SBP 180-190 mmHg. His oxygen saturation has been 100% all evening, including during the apneic spells. Pulse is normal as well. We will proceed with BiPap and continue to monitor breathing. It is our intention to hold off on intubation unless apneic spells worsen or he becomes hemodynamically unstable. Critical Care physician, Dr. Burnette, made aware of the situation and agrees with plan moving forward.
[2018-08-25 21:49] LABS: Troponin I 0.018 ng/mL (< 0.028)
--- NOTE | 2018-08-25 21:55 | PDOC.EVN ---
Event Note - Event Note Event Note: Called to room by nursing staff with progressive apneic episodes associated with brief periods of unresponsiveness. Patient spouse in room and discussed continued plan of care with patient, spouse and Daughters (via telephone from out of state).Patient initially told his to let him go and he declined re- intubation. Was not able to re-affirm the desire to change his code status however upon further questioning he indicated he wanted everything done. Patient remained with 100% saturation during these frequent witnessed episodes . Continue BiPap with increased rate to 10 Patient tolerating this well. No focal neurological symptoms doing brief unresponsive periods with blank stare . does relate additional history that patient in 50s had blackout episode but denies any specific prior seizure d/o. EEG would be worthwhile Residents relate Neurology has been consulted previously. Will update Critical Care attending.
--- NOTE | 2018-08-26 00:06 | CON ---
DATE OF CONSULTATION: 08/25/2018 CONSULTING PHYSICIAN: Hospitalist Service. IMPRESSION: Transient encephalopathy, possibly secondary to hypertensive crisis and some respiratory distress. He appears to be working his way back to his baseline. PLAN: Supportive care. HISTORY OF PRESENT ILLNESS: Mr. Wills is an 82-year-old gentleman who was at home and had been working out in the yard prior to his 's returning home. He helped her bring the groceries in and then went and sat down on a chair. When she went to check on him, she found that he was poorly responsive. He was able to try to speak and try to follow commands, but did so very weakly. They called an ambulance and he was taken to [place], initial CT was negative. He was life flighted here for further evaluation. He was placed on IV fluids. He had systolic pressures over 220. He was intubated due to what appeared to be respiratory distress in the emergency room. He has now been extubated. He is getting better according to his and family members. He has not had any type of seizure activity. He had an MRI of the brain that was unremarkable. His echocardiogram showed a normal ejection fraction of 55% to 60%. His lab work was fairly unremarkable as well. PAST MEDICAL HISTORY: Hypertension. ALLERGIES: IODINE, PENICILLIN. SOCIAL HISTORY: No tobacco or alcohol. FAMILY HISTORY: Noncontributory. MEDICATIONS: Medication list was reviewed. REVIEW OF SYSTEMS: A 10-system review of systems is otherwise unremarkable. PHYSICAL EXAMINATION: VITAL SIGNS: Blood pressure 176/96, pulse 78, respirations 20. HEENT: Pupils are equal and reactive. Conjunctivae clear. Oropharynx clear. Cranium, normocephalic and atraumatic. NECK: Supple. EXTREMITIES: There is some diffuse ecchymoses present on upper extremities. NEUROLOGIC: He awakened and answered questions. He followed commands, but did so very slowly. His voice was weak. Good antigravity strength in all 4 extremities. His reflexes were downgoing bilaterally. No abnormal movements were present in the legs. He seemed to have some asterixis on extension of the hands. SUMMARY: This elderly gentleman had some transient encephalopathy. There does not appear to be an acute neurologic event. Looks like things are getting better. I would continue supportive measures. Job ID: [id number]
[2018-08-26] MEDS: Sodium Chloride 0.9% 1,000 ML IV SCH ×3 (01:03→18:35)
[2018-08-26] MEDS: Dexamethasone 4 mg/ml Vial SLOW IVP SCH ×4 (05:01→23:01)
[2018-08-26] MEDS: Ketorolac Tromethamine 30 MG/ML VIAL IVP SCH ×4 (05:02→23:01)
[2018-08-26 05:06] LABS: Hemoglobin 11.9 g/dL (14.0-18.0); Mean Corpuscular HGB CONC 32.7 g/dL (32.0-36.0); Mean Corpuscular Hemoglobin 32.6 pg (27.0-31.0); Mean Corpuscular Volume 99.8 fL (78.0-98.0); Mean Platelet Volume 6.3 fL (7.4-10.4); Platelet Count 131 thou/uL (130-400); RBC Distribution Width 13.9 % (11.5-14.5); Red Blood Cell (RBC) Count 3.64 mill/uL (4.70-6.10)
[2018-08-26 05:19] LABS: ALT (SGPT) 31 U/L (8-55); AST (SGOT) 42 U/L (5-34); Albumin 3.3 g/dL (3.4-4.8); Alkaline Phosphatase 110 U/L (40-150); Anion Gap 12 mmol/L (10-20); BUN (Urea Nitrogen) 21 mg/dL (8.4-25.7); Bilirubin, Total 0.7 mg/dL (0.2-1.2); Calc. Creatinine Clearance 73 mL/min (70-130); Calcium 8.3 mg/dL (7.8-10.44); Carbon Dioxide 18 mmol/L (23-31); Chloride 112 mmol/L (98-107); Estimated GFR-MDRD Greater than 90; Globulin 2.7 g/dL (2.4-3.5); Glucose 94 mg/dL (83-110); Potassium 3.6 mmol/L (3.5-5.1); Sodium 138 mmol/L (136-145)
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
[2018-08-26] MEDS: levETIRAcetam 500 MG TAB PO SCH ×2 (07:53→19:54)
[2018-08-26] MEDS: Pantoprazole 40 MG VIAL IVP SCH (09:07)
[2018-08-26] MEDS: Enoxaparin Sodium 40 MG/0.4 ML SYRINGE SC SCH (09:08)
[2018-08-26] MEDS: Levothyroxine Sodium 112 MCG TAB PO SCH ×2 (09:09→09:57)
[2018-08-26] MEDS: Losartan 25 MG TAB PO SCH ×2 (09:09→09:57)
--- NOTE | 2018-08-26 19:14 | PRG ---
DATE OF SERVICE: 08/26/2018 SUBJECTIVE: Mr. Wills was having apneic spells, but would have druze of spontaneous respiration. It is felt that he was possibly having absence seizures. He was placed on noninvasive ventilatory support. He informed me today that he is tired of all this in front of his and he wants to be "let go." OBJECTIVE: VITAL SIGNS: His heart rate is 58, respiratory rate in the 20s. He is on BiPAP, oximetry is 100%, and blood pressure 181/74. LUNGS: Clear. HEART: Regular rhythm. ABDOMEN: Soft. LABORATORY DATA: White count 9.0, hemoglobin 11.9, platelets 131. Electrolytes are unremarkable except for mild hyperchloremia. IMPRESSION: Mild hyperchloremic acidosis. If anything, this would stimulate his respiratory drive instead of leading to apneic spells. It still unclear whether or not he is having apneic spells that are absence seizures. Presentation is very atypical for that. He has been started on Keppra overnight. Not sure it has helped at this point. We will honor his wishes and continue supportive care, but I have suggested to his that tomorrow we discontinue BiPAP and move forward with supportive care. We will be happy to continue to follow the other physicians caring for Mr. Wills. CRITICAL CARE TIME: 30 minutes. Job ID: [id number]
[2018-08-26] MEDS ORDERED: Morphine 2 MG/ML SYRINGE SLOW IVP PRN (19:30)
--- NOTE | 2018-08-26 20:25 | EKG ---
Test Reason : Blood Pressure : / mmHG Vent. Rate : 079 BPM Atrial Rate : 079 BPM P-R Int : 208 ms QRS Dur : 092 ms QT Int : 394 ms P-R-T Axes : 049 038 029 degrees QTc Int : 451 ms Normal sinus rhythm Normal ECG When compared with ECG of 23-AUG-2018 14:10, (Unconfirmed) No significant change was found Confirmed by ANA ROSA TAN, SMatilde ([id number]) on 08/26/2018 8:25:05 PM Referred By: Confirmed By:DR. Neil OSEGUERA MD
[2018-08-27] MEDS: Sodium Chloride 0.9% 1,000 ML IV SCH ×2 (00:47→08:48)
[2018-08-27] MEDS: Dexamethasone 4 mg/ml Vial SLOW IVP SCH (05:08)
[2018-08-27] MEDS: Ketorolac Tromethamine 30 MG/ML VIAL IVP SCH ×4 (05:08→23:17)
[2018-08-27] MEDS ORDERED: Morphine 2 MG/ML SYRINGE SLOW IVP PRN (06:47)
--- NOTE | 2018-08-27 06:56 | PDOC.FM ---
- Subjective Subjective: This AM patient states he did not sleep well. He is hallucinating, seeing movies ? "playing on the wall." Patient states he was not able to sleep overnight because of the mask and all the interruptions. Patient states he is having pain in left leg but morphine does seem to help. Discussed with patient and daughters who all agree that comfort cares, hospice is in the patient's best interest and indeed what he desires. - Objective Vital Signs & Weight: Vital Signs (12 hours) Temp Pulse Resp Pulse Ox 08/27/18 03:00 98.5 F 08/26/18 23:13 72 28 H 100 08/26/18 23:00 98.2 F 08/26/18 19:04 100 08/26/18 19:00 97.7 F Weight Admit Weight 72.575 kg Weight 73.2 kg Most Recent Monitor Data Heart Rate from ECG 69 NIBP 182/86 NIBP BP-Mean 118 Respiration from ECG 20 SpO2 100 I&O: 08/25/18 08/26/18 08/27/18 06:59 06:59 06:59 Intake Total 2840 3187 2907 Output Total 760 3215 2325 Balance 0 - 582 Result Diagrams: 08/27/18 08:23 08/27/18 08:23 Phys Exam - Physical Examination does have continued apneic spells, no distress HEENT: moist MMs Respiratory: clear to auscultation bilateral Cardiovascular: RRR, no significant murmur Gastrointestinal: soft, non-tender, no distention, positive bowel sounds Musculoskeletal: no edema, pulses present Neurological: non-focal, moves all 4 limbs Psychiatric: normal affect Skin: no rash, cap refill <2 seconds Dx/Plan (1) Hypertensive emergency Code(s): I16.1 - HYPERTENSIVE EMERGENCY Status: Acute (2) Anxiety Code(s): F41.9 - ANXIETY DISORDER, UNSPECIFIED Status: Chronic (3) Chronic pancreatitis Code(s): K86.1 - OTHER CHRONIC PANCREATITIS Status: Chronic (4) Depression Code(s): F32.9 - MAJOR DEPRESSIVE DISORDER, SINGLE EPISODE, UNSPECIFIED Status : Chronic (5) HLD (hyperlipidemia) Code(s): E78.5 - HYPERLIPIDEMIA, UNSPECIFIED Status: Chronic (6) Stroke Code(s): I63.9 - CEREBRAL INFARCTION, UNSPECIFIED Status: Acute - Plan Plan: Assessment/Plan This is a 82 yo male admitted for transient encephalopathy. Had long discussion with patient and daughters this AM who agree comfort care is the route they desire. They will call to come in to hospital. Consults: Pulm, OT/PT, Neuro, Palliative care, hospice Comfort care - will work to arrange inpatient hospice upon 's arrival to hospital - entered transfer orders to non-monitored bed - discontinued non-comfort medications upon transfer [employer] (transient encephalopathy) - Sedation:none - Initial NIHSS 32 at outside hospital, 7 upon arrival to [facility] - CT head, CTA head neg - MRI shows chronic ischemic changes but not acute CVA - Neuro consulted appreciate recs - will start keppra 500mg bid Resp (central apnea) - had normal PFTs outpt per pulm note - clear bronch / per pulm -extubated 08/25 - bipap with rate control for backup when sleeping. He tolerates RA when awake - suspect central apnea was source for intubation CV (hx of iodine allergy w/ throat swelling, HTN emergency- resolved) - EF 50-55% / - off cardene drip - permissive blood pressure for now - home losartan increased to 100mg, Labetalol PRN GI (hx of chronic pancreatitis) /Renal (NISH-resolved) Infection () - afebrile, clear on auscultation Endo( hyponatremia) Lines/Tubes: Code status: DNR/DNI PPx: pantoprazole Dispo: >2 nights Addendum - Attending - Attending Attestation Date/Time: 08/27/181912 I personally evaluated the patient and discussed the management with Dr. Katja Huber I agree with the History, Examination, Assessment and Plan documented above with any addition or exceptions noted below. Patient,Daughters and spouse counseled and all agree with plan for hospice care.
[2018-08-27] MEDS: Labetalol HCl 100 MG/20 ML VIAL SLOW IVP PRN (08:25)
[2018-08-27 08:50] LABS: Hemoglobin 12.8 g/dL (14.0-18.0); Mean Corpuscular HGB CONC 34.3 g/dL (32.0-36.0); Mean Corpuscular Hemoglobin 33.1 pg (27.0-31.0); Mean Corpuscular Volume 96.5 fL (78.0-98.0); Mean Platelet Volume 6.1 fL (7.4-10.4); Platelet Count 141 thou/uL (130-400); RBC Distribution Width 13.6 % (11.5-14.5); Red Blood Cell (RBC) Count 3.87 mill/uL (4.70-6.10); White Blood Cell (WBC) Count 6.2 thou/uL (4.8-10.8)
[2018-08-27] MEDS: Enoxaparin Sodium 40 MG/0.4 ML SYRINGE SC SCH (08:52)
[2018-08-27] MEDS: Levothyroxine Sodium 112 MCG TAB PO SCH (08:53)
[2018-08-27] MEDS: Losartan 25 MG TAB PO SCH (08:53)
[2018-08-27] MEDS: levETIRAcetam 500 MG TAB PO SCH (08:53)
[2018-08-27] MEDS: Pantoprazole 40 MG VIAL IVP SCH (08:53)
[2018-08-27 09:07] LABS: ALT (SGPT) 41 U/L (8-55); AST (SGOT) 41 U/L (5-34); Albumin 3.5 g/dL (3.4-4.8); Alkaline Phosphatase 122 U/L (40-150); Anion Gap 14 mmol/L (10-20); BUN (Urea Nitrogen) 24 mg/dL (8.4-25.7); Bilirubin, Total 0.8 mg/dL (0.2-1.2); Calc. Creatinine Clearance 76 mL/min (70-130); Calcium 8.3 mg/dL (7.8-10.44); Carbon Dioxide 19 mmol/L (23-31); Chloride 109 mmol/L (98-107); Estimated GFR-MDRD Greater than 90; Globulin 2.8 g/dL (2.4-3.5); Glucose 109 mg/dL (83-110); Potassium 3.6 mmol/L (3.5-5.1); Protein, Total 6.3 g/dL (5.8-8.1); Sodium 138 mmol/L (136-145)
[2018-08-27] MEDS ORDERED: Haloperidol Lactate 5 MG/ML VIAL SLOW IVP PRN (09:11)
[2018-08-27] MEDS ORDERED: Scopolamine 1.5 mg/72 hour Patch TD PRN (11:01)
[2018-08-27] MEDS ORDERED: Hyoscyamine Sulfate ER 0.375 mg Tablet PO PRN (11:01)
--- NOTE | 2018-08-27 12:05 | PRG ---
DATE OF SERVICE: 08/27/2018 SUBJECTIVE: Mr. Wills has been moved out of the Critical Care Unit. Apparently, inpatient hospice is being consulted. He keeps telling his family that he is ready to go, wants to be allowed to peacefully. OBJECTIVE: VITAL SIGNS: He is afebrile, heart rate is in the 60, respiratory rate 17, oximetry is 100% on room air, and blood pressure is 177/80. LUNGS: Unchanged. HEART: Unchanged. ABDOMEN: Unchanged. ASSESSMENT AND PLAN: I have a feeling he is going to pass away quickly. We will sign off. I met with his and family and answered all of their questions. Job ID: [id number]
[2018-08-27] MEDS ORDERED: Sodium Chloride 0.9% (5 ML) NEB FS PRN (12:45)
[2018-08-27] MEDS: Lorazepam 2 MG/ML VIAL SLOW IVP PRN ×2 (13:16→20:33)
[2018-08-27] MEDS ORDERED: Clopidogrel Bisulfate 75 MG TAB ONE (14:24)
[2018-08-27] MEDS: Acetaminophen 325 MG TAB PO PRN (16:23)
[2018-08-28] MEDS: Morphine 2 MG/ML SYRINGE SLOW IVP PRN ×4 (02:58→10:26)
[2018-08-28] MEDS: Ketorolac Tromethamine 30 MG/ML VIAL IVP SCH ×2 (05:33→11:32)
[2018-08-28] MEDS: Lorazepam 2 MG/ML VIAL SLOW IVP PRN ×3 (05:35→15:14)
--- NOTE | 2018-08-28 05:58 | PDOC.FM ---
- Subjective Subjective: Resting peacefully this AM. No pain this morning. On and off sleep overnight. Family met with 2 hospice care agencies yesterday and are planning on getting home hospice setup today. - Objective Vital Signs & Weight: Vital Signs (12 hours) Temp Pulse Resp BP Pulse Ox 08/28/18 04:58 98.1 F 71 16 160/83 H 100 08/28/18 00:18 98.3 F 64 18 194/84 H 100 08/27/18 20:00 98.5 F 66 16 182/107 H 100 Weight Admit Weight 72.575 kg Weight 73.2 kg Most Recent Monitor Data Heart Rate from ECG 65 NIBP 171/78 NIBP BP-Mean 109 Respiration from ECG 18 SpO2 100 I&O: 08/26/18 08/27/18 08/28/18 06:59 06:59 06:59 Intake Total 3187 2907 1796 Output Total 3218 2695 3130 Balance -28 370 -5040 Result Diagrams: 08/27/18 08:23 08/27/18 08:23 Phys Exam - Physical Examination Constitutional: NAD HEENT: moist MMs Respiratory: clear to auscultation bilateral Cardiovascular: RRR, no significant murmur Gastrointestinal: soft, non-tender, no distention, positive bowel sounds Neurological: moves all 4 limbs Psychiatric: normal affect Skin: no rash, cap refill <2 seconds Dx/Plan (1) Hypertensive emergency Code(s): I16.1 - HYPERTENSIVE EMERGENCY Status: Acute (2) Anxiety Code(s): F41.9 - ANXIETY DISORDER, UNSPECIFIED Status: Chronic (3) Chronic pancreatitis Code(s): K86.1 - OTHER CHRONIC PANCREATITIS Status: Chronic (4) Depression Code(s): F32.9 - MAJOR DEPRESSIVE DISORDER, SINGLE EPISODE, UNSPECIFIED Status : Chronic (5) HLD (hyperlipidemia) Code(s): E78.5 - HYPERLIPIDEMIA, UNSPECIFIED Status: Chronic (6) Stroke Code(s): I63.9 - CEREBRAL INFARCTION, UNSPECIFIED Status: Acute - Plan Plan: Assessment/Plan This is a 82 yo male admitted for transient encephalopathy. Anticipate home with hospice today. Consults: Pulm, OT/PT, Neuro, Palliative care, hospice Comfort care - working to arrange home hospice - comfort medications only [employer] (transient encephalopathy) - Sedation:none - Initial NIHSS 32 at outside hospital, 7 upon arrival to [facility] - CT head, CTA head neg - MRI shows chronic ischemic changes but not acute CVA - Neuro consulted appreciate recs Resp (central apnea) - had normal PFTs outpt per pulm note - clear bronch 6/2 per pulm -extubated 08/25 - bipap with rate control for backup when sleeping. He tolerates RA when awake - suspect central apnea was source for intubation CV (hx of iodine allergy w/ throat swelling, HTN emergency- resolved) - EF 50-55% 6/ - off cardene drip - permissive blood pressure for now GI (hx of chronic pancreatitis) /Renal (NISH-resolved) Infection () - afebrile, clear on auscultation Endo( hyponatremia) Lines/Tubes: Code status: DNR/DNI PPx: pantoprazole Dispo: >2 nights Addendum - Attending - Attending Attestation Date/Time: 08/28/18 0800 I personally evaluated the patient and discussed the management with Dr. Engle I agree with the History, Examination, Assessment and Plan documented above with any addition or exceptions noted below. Discussed care plan with patient and daughter this am Patient in NAD and will attempt transfer to home hospice or NH with hospice if not able to meet care needs at home.
[2018-08-28 08:08] VITALS: BP 164/83; TEMP 97.5
--- NOTE | 2018-08-28 11:32 | PDOC.EVN ---
Event Note - Event Note Event Note: This patient is exhibiting physical decline, functional decline, dependent on all ADLs He is very near to end of life Main source appears to be central hypoventilation at this time
--- NOTE | 2018-08-28 11:35 | PDOC.EVN ---
Event Note - Event Note Event Note: MRI shows chronic atrophy and white matter changes which may be contributing to his overall decline
[2018-08-28 13:56] VITALS: BMI 25.9
--- NOTE | 2018-08-28 17:22 | PRG ---
DATE OF SERVICE: 08/28/2018 SUBJECTIVE: Mr. Wills told me that he wanted me to put him down like a dog or horse today. He told family that he wanted to see me, so I gave him a medicine, so he can go ahead and pass. I very clearly explained to him that is not possible. He is not eating and drinking with this alone, he will probably last another week or two. He is not having any of the episodes that led to his intubation. OBJECTIVE: VITAL SIGNS: He is afebrile, heart rate is 72, respiratory rate is 18, oximetry is 100% on 4 L, and blood pressure 164/83. LUNGS: Remarkable for rhonchi. HEART: Regular rhythm. ABDOMEN: Soft. IMPRESSION AND PLAN: 1. Bronchiectasis. 2. Chronic aspiration. 3. Swallowing dysfunction. 4. History of pneumonias. 5. ? Absence seizures. 6. Extreme deconditioning. 7. Appropriate reactive depression. His last year has been pretty rough and he is just tired of this decline, even though he is only 82 years old. Prior to his admission, he was actually functional and was outside working. His came home from the grocery store and he actually brought groceries in. His hypertension was poorly controlled, but there was no evidence of posterior reversible encephalopathy on MRI. It is not real clear why he needed intubation, although he was clearly having prolonged apneic spells. He is clinically improved. I suspect that he will hang on for a while. He cannot get approved for hospice. He can go home with an [id number] DNR and just home health nursing and his very supportive family. If they do not think they can handle it, he could go to a skilled unit with a DNR and perhaps with a couple of days or 3 days with improvement. He would not be willing to cooperate with physical therapy. Job ID: [id number]
--- NOTE | 2018-08-29 04:08 | DIS ---
DATE OF ADMISSION: 08/23/2018 DATE OF DISCHARGE: 08/28/2018 ATTENDING PHYSICIAN: Lisandro Rincon MD. CONSULTS: Pulmonology, Neurology, Palliative Care. PROCEDURES: Bronchoscope, intubation. 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 SECONDARY DIAGNOSES: Physical decline, functional decline, dependent for all activities of daily living, hypertensive emergency, anxiety, chronic pancreatitis, hyperlipidemia, history of stroke. DISCHARGE MEDICATIONS: Comfort medications only. As per [facility]. DISCONTINUED MEDICATIONS: All not related to comfort. HISTORY OF PRESENT ILLNESS/HOSPITAL COURSE: This is an 82-year-old gentleman who was admitted after being found down at home. stated, he had been outside all morning while she went to the grocery store and he had helped out groceries in. He was not arousable. When he arrived at the outside ER, his NIH Stroke Scale was 32. He was life flighted to [facility]. He had multiple apneic episodes while in [place], which resulted in him not responding to stimulation. On arrival to [facility] [place] ER, his NIH Stroke Scale 7. His blood pressure was found to be in the 220s over 110s and he was started on a Cardene drip. During the course of hospitalization, the patient went down for MRI and while in MRI he had an apneic episode from which there was difficulty getting him to recover. He was taken to the ICU and a bronchoscope was done as there was concern for aspiration. The scope was clear. He was not responding and it was felt that he might not protect his airway and so he was intubated. Eventually, the patient was extubated. He continued to have the apneic spells and was put on BiPAP with rate control. An MRI showed chronic ischemic and white matter changes, but no acute stroke. It was felt that the patient's apneic episodes are caused by central hypoventilation and will continue to recur and may get longer. The patient stated that he did not want to be intubated again. The patient stated that he was ready for end of life care. He requested multiple times during the hospitalization to be euthanized. Discussion was had between him and family that this is not the best course of action nor is euthanasia offered at [facility]. After long discussions with palliative Care, patient and family, it was decided that the patient would go home with home hospice with [facility]. DISPOSITION: Grave. DISCHARGE INSTRUCTIONS: Location: Home. Diet: Comfort feeds. Activity: As tolerated. FOLLOWUP: Follow up with [facility]. Job ID: [id number]
== END 2018-08-28 17:09 | disposition hospice, home (50) | DRG 65 ==
LOC: ERS 21:51 → CCU 08-23 01:15 → 2SE 08-23 09:02 → CCU 08-23 12:48 → T4-B 08-27 09:54
PROVIDERS: ADMIT Student in an Organized Health Care Education/Training Program; ATTEND Student in an Organized Health Care Education/Training Program
DX: I63.9 Cerebral infarction, unspecified (principal); I16.1 Hypertensive emergency; K86.1 Other chronic pancreatitis; J96.10 Chronic respiratory failure, unspecified whether with hypoxia or hypercapnia; E87.1 Hypo-osmolality and hyponatremia; G93.40 Encephalopathy, unspecified; N17.9 Acute kidney failure, unspecified; Z51.5 Encounter for palliative care; Z88.0 Allergy status to penicillin; I10 Essential (primary) hypertension; E78.5 Hyperlipidemia, unspecified; M54.9 Dorsalgia, unspecified; G89.29 Other chronic pain; F41.9 Anxiety disorder, unspecified; F32.9 Major depressive disorder, single episode, unspecified; Z90.49 Acquired absence of other specified parts of digestive tract; Z80.0 Family history of malignant neoplasm of digestive organs
CPT/HCPCS: 36415; 36416; 70450; 70496; 70498; 70551; 71045; 72170; 80048; 80053; 80306; 80307; 81003; 82550; 82805; 83605; 83880; 84443; 84484; 85025; 85027; 85610; 85730; 86850; 86900; 86901; 93005; 93010; 93306; 94002; 94003; 94640; 94660; 94760; 96365; 96375; C9113; J1100; J1200; J1650; J1885; J1953; J2060; J2250; J2270; J2704; J2930; J7050; J7620; Q9966; S0028